=== PATIENT | female | born 1990 | race Caucasian/White ===

== ENCOUNTER 2022-11-10 11:37 | Emergency (ER) | payer OTHER, SELFPAY ==
[2022-11-10 11:46] VITALS: BP 109/67; PULSE 92; RESP 14; TEMP 36.4; O2SAT 100
--- NOTE | 2022-11-10 11:56 | ED.ABDPAIN ---
HPI - Abdominal Pain General Chief Complaint: Back Pain/Injury Stated Complaint: Spotting / lots of pain () Time Seen by Provider: 11/10/22 11:56 Source: patient Mode of arrival: ambulatory Limitations: no limitations History of Present Illness HPI narrative: 31-year-old female presents with complaint of vaginal bleeding, low back pain for the past week. Patient seen at [facility] ER last night and had positive test, positive hCG blood test and sent home. States they did not do an ultrasound. Patient here today stating that pain is worse. Was hoping that she can get an ultrasound here. No urinary symptoms. Last menstrual period September 26. Had miscarriage approximately 2 months ago. All systems reviewed and except as noted above. Related Data Home Medications Medication Instructions Recorded Confirmed No Home Medications 11/10/22 11/10/22 Allergies Allergy/AdvReac Type Severity Reaction Status Date / Time Penicillins Allergy Unknown Itching Verified 11/10/22 11:56 Review of Systems Review of Systems: CONSTITUTIONAL: Denies fever, chills, or sweats. EYES: Denies visual changes, redness, or discharge. ENT: Denies rhinorrhea, congestion, sore throat, or otalgia. CARDIOVASCULAR: Denies chest pain, palpitations, or edema. RESPIRATORY: Denies cough or dyspnea. GASTROINTESTINAL: Denies abdominal pain, nausea, vomiting, or diarrhea. GENITOURINARY: Denies dysuria or hematuria. Ports past SKIN: Denies rash or itching. MUSCULOSKELETAL: Reports low back pain. Denies joint pain, or myalgia. NEUROLOGIC: Denies headache, numbness, or weakness. PSYCHIATRIC: Denies anxiety or depression. All other systems reviewed are negative, except as documented in HPI. PMFSH Comments At time of signature, agree with nursing past medical, surgical, social and family history. There is no relevant family history pertinent to the presenting complaint. Exam Narrative: GENERAL: This is a well-nourished, well-developed patient, in no apparent distress. HEAD: normocephalic, atraumatic. EYES: PERRL. Sclera clear/white. Vision is grossly intact. EARS: External ears normal NOSE: External nose normal NECK: Neck supple, non-tender without lymphadenopathy, masses or thyromegaly. CARDIOVASCULAR: Regular rate and rhythm without murmurs, gallops, or rubs. RESPIRATORY: Clear to auscultation. Breath sounds equal bilaterally. No wheezes, rales, or rhonchi. SKIN: warm, Dry, intact with no suspicious lesions or rash, good texture and turgor. NEURO: awake, alert, and oriented to person, place and time. There were no obvious focal neurologic abnormalities. EXTREMITIES: No joint tenderness, effusion, or edema noted. Course Course Level of Care: Express Care Visit Vital Signs Vital signs: Vital Signs Temperature 36.4 C 11/10/22 11:46 Pulse Rate 92 11/10/22 11:46 Respiratory Rate 14 11/10/22 11:46 Blood Pressure 109/67 11/10/22 11:46 Pulse Oximetry 100 11/10/22 11:46 Oxygen Delivery Room Air 11/10/22 11:46 Temperature 36.4 C 11/10/22 11:58 Pulse Rate 92 11/10/22 11:58 Respiratory Rate 14 11/10/22 11:58 Blood Pressure 109/67 11/10/22 11:58 Pulse Oximetry 100 11/10/22 11:58 Oxygen Delivery Room Air 11/10/22 11:58 Reviewed Transfer Transfered to: [facility] Transportation: Other (Private car) Transfer rationale: vaginal bleeding and pain during . needs ultrasound. Accepting physician: Dr. Gruber MDM - Abdominal Pain MDM Narrative Medical decision making narrative: Patient is aware of diagnosis, understands and agrees to treatment plan. Anticipatory guidance given. Patient agrees to follow-up as directed and is aware of reasons to seek care at the emergency department. Portions of this record may have been created with voice recognition software Lab Data Labs: Urine Glucose Negative
[2022-11-10 11:58] VITALS: BP 109/67; PULSE 92; RESP 14; TEMP 36.4; O2SAT 100
== END 2022-11-10 12:20 | disposition short-term general hospital (02) ==
PROVIDERS: Emergency Provider Nurse Practitioner Family; PCP Internal Medicine
DX: O46.90 Antepartum hemorrhage, unspecified, unspecified trimester (principal)
CPT/HCPCS: 81003; 99203; G0463

== ENCOUNTER 2024-08-19 10:12 | Emergency (ER) | payer OTHER, SELFPAY ==
--- NOTE | 2024-08-19 10:14 | ED.FEMALEGU ---
HPI - Female Genitourinary General Chief complaint: Urogenital-Female Stated complaint: vagina irritation Time Seen by Provider: 08/19/24 10:22 Source: patient, RN notes reviewed and old records reviewed Mode of arrival: ambulatory Limitations: no limitations History of Present Illness HPI Narrative: 33-year-old female presents to the [facility] with vaginal issues. Patient reports 2-3 day history of vaginal discharge, abnormal smell. Describes as thick white discharge. States that she started having sex with a new partner, slightly concern for STD. thinks she might also have a tampon in the vaginal. Reports that she was treated for a UTI by [facility] on the 09 August, 10 days ago. LMP 1 week ago Onset (ago): day(s) (2-3) Sexual activity: Yes Date of Last Menstrual Period: 08/12/24 Related Data Home Medications ?Medication ?Instructions ?Recorded ?Confirmed ?Last Taken ?Type nitrofurantoin 08/19/24 Unknown History monohydrate/macrocrystals 100 mg capsule phenazopyridine 200 mg tablet mg 08/19/24 Unknown History Allergies Allergy/AdvReac Type Severity Reaction Status Date / Time Penicillins Allergy Unknown Itching Verified 08/19/24 10:23 Review of Systems Review of Systems: All systems reviewed & are unremarkable except as noted in HPI and below Constitutional: Constitutional: Reports no additional constitutional complaints ENT: Reports system reviewed and no additional complaints, except as documented Cardiovascular: Cardiovascular: Reports no additional cardiovascular complaints, Denies chest pain and Denies dyspnea Respiratory: Respiratory: Reports no additional respiratory complaints, Denies chest congestion, Denies cough and Denies dyspnea Genitourinary: Genitourinary: Reports as per HPI Musculoskeletal: Musculoskeletal: Reports no additional musculoskeletal complaints Integumentary/Breasts: Skin/Breast: Reports system reviewed and no additional complaints, except as docu PMFSH Comments At the time of my signature, I reviewed and agree with the nursing past medical, surgical, social, and family history. There is no relevant family history pertinent to the patient complaint. Exam Const: General: cooperative, healthy appearing, comfortable, no acute distress, well developed, alert and well nourished Nutritional Appearance: well nourished Orientation/consciousness: patient oriented x3 Limitations: no limitations HENMT: Head: normal to inspection Eyes: General: appearance normal, both eyes and all related structures Alignment and Position: alignment normal Neck: Neck: normal visual inspection, full ROM, no lymphadenopathy and no meningeal signs Chest: Chest palpation & inspection: normal inspection of the chest Resp: Effort & Inspection: normal respiratory effort and able to speak in complete sentences Cardio: Rate: regular rate GI: GI Palp: No abdominal tenderness : External Female Exam: normal external appearance Speculum Exam - Vagina: abnormal vaginal discharge white and malodorous, not erythematous, no swelling and nontender Speculum Exam - Cervix: normal appearance of the cervix, Cervical os closed and nontender Other: Chaperoned by Valroie FARR Back/Spine/Pelvis: Back: no CVA tenderness Skin: General skin exam: normal color and no rashes or lesions noted Neuro: General: patient oriented x3, gait normal, moves all extremities and no meningeal signs Cognition (Neuro): normal cognition Speech: normal speech Gait exam (Neuro): Normal gait present Extrem: General: normal to inspection, full ROM, capillary refill normal and normal gait Psych: Appearance: grossly normal and well kempt Mental Status: mental status grossly normal Speech and movement: Normal speech and movement present and Clear speech present Affect: normal affect Attitude: cooperative Course Course Level of Care: Express Care Visit Vital Signs Vital signs: Vital Signs Temperature 97.9 F 08/19/24 10:18 Pulse Rate 99 08/19/24 10:18 Respiratory Rate 16 08/19/24 10:18 Blood Pressure 107/90 08/19/24 10:18 Pulse Oximetry 100 08/19/24 10:18 Oxygen Delivery Room Air 08/19/24 10:18 Temperature 97.9 F 08/19/24 10:18 Pulse Rate 99 08/19/24 10:18 Respiratory Rate 16 08/19/24 10:18 Blood Pressure 107/90 08/19/24 10:18 Pulse Oximetry 100 08/19/24 10:18 Oxygen Delivery Room Air 08/19/24 10:18 Reviewed MDM - Female Genitourinary MDM Narrative Medical decision making narrative: Patient sitting in exam. Nontoxic, vitals are stable. Due to patient taking Pyridium and able to do urine dip, currently on Macrobid Culture sent. No foreign body noted Patient appropriate for outpatient treatment with close follow-up with silk weaver. Discharge instructions reviewed with patient, as well as provided in writing per nursing staff. The instructions also include specific and strict return/GO TO THE ER as well as f/u information. All questions have been answered, and the patient deny any further questions with discharge and discharge plan. Some parts of this dictation were generated by voice recognition software and may contain typographical and/or grammatical inaccuracies. Differential Diagnosis Differential diagnosis: Likely urinary tract infection, bacterial vaginosis, trichomoniasis, cervicitis, vaginitis, cystitis and dysmenorrhea Lab Data Labs: Lab Results 08/19/24 08/19/24 Range/Units 10:24 10:28 POC Urine HCG, Qual Negative (Negative) Bact Vaginosis Panel Pending Reviewed Critical Care Time Critical Care Time Critical Care Time: No Discharge Plan Discharge Clinical Impression: Bacterial vaginosis, Vaginal yeast infection Patient Disposition: Home Condition: Stable Instructions: Antibiotic Form, Bacterial Vaginosis (ED), Yeast Infection (ED) Additional Instructions: Today you been tested for chlamydia, gonorrhea and Trichomonas. If they are positive you will be notified For bacteria vaginitis you can eat a yogurt a day or take a probiotic. Soak in lukewarm water with baking soda and Epson salt Take medication as prescribed. Is not recommended that you drink any alcohol while on this medication and for 72 hours after Please follow-up with your silk weaver provider Patient Language: Malagasy Prescriptions: New fluconazole 150 mg tablet 150 mg PO ONCE Qty: 1 0RF Rx Instructions: as a single dose metronidazole 500 mg tablet 500 mg PO Q12H Qty: 14 0RF No Action phenazopyridine 200 mg tablet nitrofurantoin monohyd/m-cryst 100 mg capsule Follow-up/Referrals: UNKNOWN,DOCTOR [Non-Staff] - Stand Alone Forms: Work/School Release IP Time of Disposition: 10:49
[2024-08-19 10:18] VITALS: BP 107/90; PULSE 99; RESP 16; TEMP 36.6; O2SAT 100
[2024-08-19 10:45] LABS: BEDSIDEPREGUCG Negative (Negative)
--- NOTE | 2024-08-19 10:46 | PC.NURSE ---
1040 To room to [facility] for pelvic exam with T Topper In Mold Coater . Swabs collected and labeled. Pt tolerated procedure well.
--- OUTSIDE RECORDS SUMMARY | 2024-08-19 11:32 | XMS_ITS | Encounter Summary ---
Author Organization [facility] Address [address] [place] [address] Phone Care Team Providers Care Air Tester Name Role Phone Geovanny Springer MD Primary Care Provider [phone] Provider, None Primary Care Provider Unavailabl e Reason for Visit * Reason Comments Medication Refill Encounter Details Date Type Department Care Team (Late st Contact Info) Description 10/26/2022 Telephone [facility] - [facility] Medicine - [place] [address] [place] [address] Geovanny Springer MD [address] [place] [address] Medication Refill Social History Tobacco Use Types Packs/Day Years Used Date Smoking Tobacco: Every Day Cigarettes 0.5 24 Started: 1998; Last attempted to quit: 2022 Passive Smoke Exposure: Current Smokeless Tobacco: Never Alcohol Use Standard Drinks/Week Comments Yes 0 (1 standard drink = 0.6 oz pur e alcohol) occasionaly PHQ-2 Answer Date Recorded Total Score - Questions 1-9 4 05/26 Education Answer Date Recorded What is the highest level of school you have completed or the highest degree you have received? 8th grade 07/26/2022 Sexually Active Control Partners Comments Yes Male Comments Unknown Sex and Gender Information Value Date Recorded Sex Assigned at Not on file Legal Sex Female 7:05 PM CDT Gender Identity Not on file Sexual Orientation Not on file COVID-19 Exposure Response Date Recorded In the last 10 days, have yo u been in contact with someone who was confirmed or suspected to have Coronavirus/COVID-19? 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
--- OUTSIDE RECORDS SUMMARY | 2024-08-19 11:32 | XMS_ITS | Encounter Summary ---
Author Organization [facility] Address [address] [place] [address] Phone Care Team Providers Care Garbage Depot Worker Name Role Phone Geovanny Springer MD Primary Care Provider [phone]- [phone] Provider, None Primary Care Provider Unavailabl e Reason for Visit * Reason Comments Medication Refill Encounter Details Date Type Department Care Team (Late st Contact Info) Description 08/30/[address] [facility] - Internal Medicine - [place] [address] [place] [id number] Geovanny Springer MD [address] [place] [address] Medication Refill Social History Tobacco [...] Active Control Partners Comments Yes Male Comments No Sex and Gender Information Value Date Recorded Sex Assigned at Not on file Legal Sex Female 7:05 PM CDT Gender Identity Not on file Sexual Orientation Not on file documented as of this encounter Miscellaneous Notes * Telephone Encounter - Roya Diaz RN - 08/30/2023 9:33 AM CDT Medication failed the protocol, provider to review and approve the medication order if appropriate. Requested Prescriptions Pending Prescriptions Disp Refills traMADol (ULTRAM) 50 MG Tablet [Pharmacy Med Name: TRAMADOL 50MG TABLETS] 14 Tablet Sig: TAKE 1 TABLET BY MOUTH TWICE DAILY NEEDED FOR MODERATE TO SEVERE PAIN Not Delegated - Opioid Agonists Protocol Failed - 08/30/2023 9:30 AM Failed - This refill cannot be delegated Passed - Visit with relevant provider in past 12 months or upcoming 90 days Recent Visits Date Type Provider Dept 01/05/23 Office Visit Geovanny Springer MD [facility] 09/14/22 Office Visit Geovanny Springer MD [facility] Showing recent visits within past 365 days and meeting all other requirements Future Appointments No visits were found meeting these conditions. 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
--- OUTSIDE RECORDS SUMMARY | 2024-08-19 11:32 | XMS_ITS | Encounter Summary ---
Author Organization [facility] Address [address] [place] [address] Phone Care Team Providers Care Core Cutter And Reamer Name Role Phone Geovanny Springer MD Primary Care Provider [phone]- [phone] Provider, None Primary Care Provider Unavailabl e Reason for Visit * Reason Comments Medication Refill Encounter Details Date Type Department Care Team (Late st Contact Info) Description 12/09/2022 Refill [facility] - Internal Medicine - [place] [address] [place] [phone] Geovanny Springer MD [address] [place] [address] Medication Refill Social History Tobacco [...] Active Control Partners Comments Yes Male Comments Yes Sex and Gender Information Value Date Recorded Sex Assigned at Not on file Legal Sex Female 7:05 PM CDT Gender Identity Not on file Sexual Orientation Not on file COVID-19 Exposure Response Date Recorded In the last 10 days, have yo u been in contact with someone who was confirmed or suspected to have Coronavirus/COVID-19? 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
--- OUTSIDE RECORDS SUMMARY | 2024-08-19 11:32 | XMS_ITS | Encounter Summary ---
Author Organization [facility] Address [address] [place] [address] Phone Care Team Providers Care Usps Letter Carrier Name Role Phone Geovanny Springer MD Primary Care Provider [phone]- [phone] Provider, None Primary Care Provider Unavailabl e Reason for Visit * Reason Comments Medication Refill Encounter Details Date Type Department Care Team (Late st Contact Info) Description 10/24/2022 Refill [facility] - Internal Medicine - [place] [address] [place] [phone] Geovanny Springer MD [address] [place] [address] Medication Refill Social History Tobacco [...] Telephone Encounter - Roya Diaz RN - 10/26/2022 8:31 AM CDT PDMP 10/16/22 - 7 day supply Medication failed the protocol, provider to review and approve the medication order if appropriate. Requested Prescriptions Pending Prescriptions Disp Refills traMADol (ULTRAM) 50 MG Tablet [Pharmacy Med Name: TRAMADOL 50MG TABLETS] 14 Tablet 0 Sig: TAKE 1 TABLET BY MOUTH TWICE DAILY NEEDED FOR MODERATE TO SEVERE PAIN Not Delegated - Opioid Agonists Protocol Failed - 10/24/2022 10:14 PM Failed - This refill cannot be delegated Passed - Visit with relevant provider in past 12 months or upcoming 90 days Recent Visits Date Type Provider Dept 09/14/22 Office Visit Geovanny Springer MD [facility] 08/17/22 Office Visit Maya Payne PAC [facility] 07/26/22 Office Visit Geovanny Springer MD [facility] 06/20/22 Office Visit Geovanny Springer MD [facility] Showing recent visits within past 365 days and meeting all other requirements Future Appointments Date Type Provider Dept 11/16/22 Appointment Geovanny Springer MD [facility] Showing future appointments within next 90 days and meeting all other requirements documented in this encounter Plan of Treatment Not on file documented as of this encounter Visit Diagnoses Diagnosis Chronic bilateral low back pain without sciatica documented in this encounter Additional Health Concerns Assessment Noted Time PHQ-9 Depression Total Score: 4 06/20/19 23 1:00 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
--- OUTSIDE RECORDS SUMMARY | 2024-08-19 11:32 | XMS_ITS | Encounter Summary ---
Author Organization [facility] Address [address] [place] [address] Phone Care Team Providers Care Switchboard Mechanic Name Role Phone Geovanny Springer MD Primary Care Provider [phone]- [phone] Provider, None Primary Care Provider Unavailabl e Reason for Visit * Reason Comments Medication Refill Encounter Details Date Type Department Care Team (Late st Contact Info) Description 11/17/2022 Refill [facility] - Internal Medicine - [place] [address] [place] [phone] Geovanny Springer MD [address] [place] [address] Medication Refill Social History Tobacco [...] PM CDT documented as of this encounter Miscellaneous Notes * Telephone Encounter - Roya Diaz RN - 11/17/2022 11:04 AM CDT Medication failed the protocol, provider to review and approve the medication order if appropriate. Requested Prescriptions Pending Prescriptions Disp Refills traMADol (ULTRAM) 50 MG Tablet [Pharmacy Med Name: TRAMADOL 50MG TABLETS] 12 Tablet 0 Sig: TAKE 1 TABLET BY MOUTH EVERY 8 HOURS NEEDED FOR MODERATE TO SEVERE PAIN Not Delegated - Opioid Agonists Protocol Failed - 11/17/2022 11:00 AM Failed - This refill cannot be delegated Passed - Visit with relevant provider in past 12 months or upcoming 90 days Recent Visits Date Type Provider Dept 09/14/22 Office Visit Geovanny Springer MD [facility] 08/17/22 Office Visit Maya Payne PAC [facility] 07/26/22 Office Visit Geovanny Springer MD [facility] 06/20/22 Office Visit Geovanny Springer MD [facility] Showing recent visits within past 365 days and meeting all other requirements Future Appointments Date Type Provider Dept 01/05/23 Appointment Geovanny Springer MD [facility] Showing future appointments within next 90 days and meeting all other requirements documented in this encounter Plan of Treatment Not on file documented as of this encounter Visit Diagnoses Diagnosis Chronic bilateral low back pain without sciatica documented in this encounter Additional Health Concerns Assessment Noted Time PHQ-9 Depression Total Score: 4 06/20/19 23 1:00 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
--- OUTSIDE RECORDS SUMMARY | 2024-08-19 11:32 | XMS_ITS | Clinical Summary ---
Author Organization [facility] Address [address] [place] [address] Care Team Providers Care Substance Abuse Therapist Name Role Phone Unavailable Primary Care Provider Unavailabl e Source Comments [facility],non-owned Affiliates and Associated Physician Practices is amultiple site organization consisting of ambulatory clinics and hospital sitesin [place], [place], [place] and [place]. This disclosure is being madepursuant to the Care Everywhere program and may not contain all information available regarding this patient. Last updated 18.[facility] Allergies Active Allergy Reactions Criticality Noted Date Comments Penicillins Rash Medium 08/19/2019 Pt reports itching and rash Medications * Be aware that medications may not be up to date on this document. Alwaysverify current medications with the patient. LK-Azi-MU-Omeg a-3 ( GUMMIES/DHA & FA) 0.4-32.5 MG CHEW Active nicotine (NICODERM CQ) 21 MG/24HR patchIndicatio ns:Smoker,Dich orionic diamniotic twin , antepartum (HCC) Apply 1 patch to skin once daily 30 patch 0 Active Additional Information Patient not taking.Reported on 12/04/2019 nicotine (NICODERM CQ) 14 MG/24HR patchIndicatio ns:Smoker,Dich orionic diamniotic twin , antepartum (HCC) Apply 1 patch to skin once daily 30 patch 0 Active Additional Information Patient not taking.Reported on 12/04/2019 nicotine (NICODERM CQ) 7 MG/24HR patchIndicatio ns:Smoker,Dich orionic diamniotic twin , antepartum (HCC) Apply 1 patch to skin once daily 30 patch 0 Active Additional Information Patient not taking.Reported on 12/04/2019 polyethylene glycol 3350 (MIRALAX) 17 g packet Take 17 g by mouth once daily as needed for Constipation 100 g 1 0 Active acetaminophen (TYLENOL) 325 MG tablet Take 2 tablets by mouth every 6 hours as needed for Fever or Pain Maximum allowable Acetaminophen amount = 4 Grams (4000 mg) / 24 hours. 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 DCFS was allowing her to see her 3 kids until Covid started. Polyhydramnios affecting Oligohydramnios, antepartum Tobacco smoking affecting in third tri mester Twin , antepartum Immunizations Immunization Administration Dates Next Due TDAP (7yrs+) 12/05/2019(Deferred: Patient Ref used) Family History Medical History Relation Name Comments Cancer - Other Maternal Grandfather Relation Name Status Comments Brother 1 Alive Brother 2 Alive Father Alive Maternal Grandfather Maternal Grandmother Mother Alive Paternal Grandfather Alive Paternal Grandmother Alive Sister Alive Social History Tobacco Use Types Packs/Day Years Used Date Smoking Tobacco: Former Cigarettes 1 20.2 0 05/20/1999 - 07/29/2019 Smokeless Tobacco: Never Alcohol Use Standard Drinks/Week Comments Not Currently 0 (1 standard drink = 0.6 oz pur e alcohol) Comments No Sex and Gender Information Value Date Recorded Sex Assigned at Not on file 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 Gender Identity Not on file Sexual Orientation Not on file Last Filed Vital Signs Vital Sign Reading Time Taken Comments Blood Pressure 106/70 12/15/2019 12:51 AM CDT Pulse 78 12/15/2019 12:51 AM CDT Temperature 36.4 C (97.6 F) 12/15/2019 12:51 AM CDT Respiratory Rate 18 12/15/2019 12:51 AM CDT Oxygen Saturation 100% 12/15/2019 12:51 AM CDT Inhaled Oxygen Concentration - - Weight 66.2 kg (146 lb) 12/04/2019 5:25 PM CDT Height 160 cm (5' 3 ) 12/04/2019 5:25 PM CDT Body Mass Index 25.86 12/04/2019 5:25 PM CDT Plan of Treatment Health Maintenance Due Date Last Done Comments HIV SCREENING 2004 HEPATITIS C SCREENING 12/24/2007 DTAP/TDAP/TD VACCINES (1 - Tdap) 2008 HEPATITIS B VACCINE (1 of 3 - 19+ 3-dose series) 2008 COVID-19 VACCINE ( - 2023-2 5 season) 2023 DEPRESSION SCREENING 04/24/2024 INFLUENZA VACCINE (Season Ended) 2024 ZOSTER VACCINE (1 of 2) 12/29/2039 HIB VACCINE Aged Out No longer eligi ble based on patient's age to complete this topic HPV VACCINE Aged Out No longer eligi ble based on patient's age to complete this topic MENINGOCOCCAL (Group B) VACC INE SHARED DECISION-MAKING Aged Out No longer eligibl e based on patient's age to complete this topic MENINGOCOCCAL GROUPS A/C/Y/W VACCINE Aged Out No longer eligible b ased on patient's age to complete this topic PNEUMOCOCCAL VACCINE Aged Out No long er eligible based on patient's age to complete this topic Insurance [facility] [place] [address] Advance Directives * Full Code (Latest Code Status on File) Date Activated Date Inactivated Comments 12/12/2019 9:12 AM 12/15/2019 1:47 PM * Full Code Date Activated Date Inactivated Comments 12/04/2019 7:20 PM 12/12/2019 9:12 AM * Full Code Date Activated Date Inactivated Comments 12/04/2019 5:42 PM 12/04/2019 7:20 PM
--- OUTSIDE RECORDS SUMMARY | 2024-08-19 11:32 | XMS_ITS | Clinical Summary ---
Author Organization [facility] Address [address] [place] [address] Phone Care Team Providers Care Applications Scientist Name Role Phone Provider, None Primary Care Provider Unavailabl e Allergies Active Allergy Reactions Criticality Noted Date Comments Amoxicillin Rash 09/14/2016 Hydrocodone-Acetaminophen Unknown 06/01/2022 Penicillins Anaphylaxis 11/23/2015 Medications polyethylene glycol (GLYCOLAX, MIRALAX) 17 g PackIndications :Constipation Take 1 Packet by mouth 2 times daily as needed for Constipation - 1st line. Dissolve in 4-8 oz of liquid. Indications: Constipation 90 Packet 3 Active ondansetron (ZOFRAN-ODT) 4 MG TABLET DISPERSIBLE Take 1 Tablet by mouth every 6 hours as needed for Nausea - 1st line. 10 Tablet 3 Active acetaminophen (TYLENOL) 500 MG Tablet Take 500 mg by mouth. 3 Active traMADol (ULTRAM) 50 MG TabletIndicatio ns:Chronic bilateral low back pain without sciatica TAKE 1 TABLET BY MOUTH TWICE DAILY NEEDED FOR MODERATE TO SEVERE PAIN 14 Tablet 4 Active nitrofurantoin, monohydrate-mac rocrystal, (Macrobid) 100 MG Capsule Take 1 Capsule by mouth 2 times daily for 7 days. 14 Capsule 5 025 phenazopyridine (Pyridium) 200 MG Tablet Take 1 Tablet by mouth 3 times daily for 3 days. 9 Tablet 5 025 Active Problems Problem Noted Date Diagnosed Date Chronic low back pain 08/08/2022 Vapes nicotine containing substance 08/08/2022 Resolved Problems Problem Noted Date Diagnosed Date Resolved Date Cellulitis 08/09/2022 09/14/2022 Incarcerated umbilical hernia 08/08/2022 09/14/2022 Encounters Date Type Department Care Team Description 08/09/2024 3:00 PM CDT - 08/09/2024 4:48 PM CDT Emergency [facility] [address] [place] [address] Wilberto Bee, MARTIN Acute cystitis with hematuria Discharge Disposition: Discharged to home or Selfcare 08/09/2024 Travel from Last 3 Months Immunizations Immunization Administration Dates Next Due Human Papillomavirus Vaccine (HPV), quadrivalent 08/02/2006 Family History Medical History Relation Name Comments No Known Problems Daughter 1 No Known Problems Daughter 2 No Known Problems Father No Known Problems Half-Brother 1 No Known Problems Half-Brother 2 No Known Problems Half-Sister No Known Problems Mother Asthma Son 1 No Known Problems Son 2 No Known Problems Son 3 Relation Name Status Comments Daughter 1 Alive Daughter 2 Alive Father Alive Half-Brother 1 Alive Half-Brother 2 Alive Half-Sister Alive Mother Alive Son 1 Alive Son 2 Alive Son 3 Alive Social History Tobacco Use Types Packs/Day Years Used Date Smoking Tobacco: Every Day Cigarettes 0.5 24 Started: 1998; Last attempted to quit: 2022 Passive Smoke Exposure: Current Smokeless Tobacco: Never Tobacco Cessation:Ready to Q uit: Not Asked; Counseling Given: Not Answered Alcohol Use Standard Drinks/Week Comments Yes 0 [...] Sign Reading Time Taken Comments Blood Pressure 117/84 08/09/2024 4:46 PM CDT Pulse 95 08/09/2024 4:46 PM CDT Temperature 36.9 C (98.4 F) 08/09/2024 2:38 PM CDT Respiratory Rate 18 08/09/2024 4:46 PM CDT Oxygen Saturation 100% 08/09/2024 4:46 PM CDT Inhaled Oxygen Concentration - - Weight 49.9 kg (110 lb) 08/09/2024 2:38 PM CDT Height 160 cm (5' 3 ) 08/09/2024 2:38 PM CDT Body Mass Index 19.49 08/09/2024 2:38 PM CDT Plan of Treatment Health Maintenance Due Date Last Done Comments Hepatitis C Virus (HCV) Screening 1989 TdaP Immunization 1989 Hepatitis B Immunization (1 of 3 - 19+ 3-dose series) 2008 Pap Smear 2010 Cervical Cancer Screening (CCS) 12/29/2019 HPV/Cotest 12/29/2019 SARS-COV-2 Immunization ( - 2023-25 season) 2023 Respiratory Syncytial Virus (RSV) Immunization (Adult) (1 - 1-dose 75+ series) 2064 Influenza Immunization Discontinued Meningococcal Immunization (ACWY) Aged Out No longer eligible based on patient's age to complete this topic Pneumococcal Immunization Combined Discontinued Rotavirus Immunization Aged Out No lo nger eligible based on patient's age to complete this topic Medical Devices Implanted Type Area Diesel Retrofit Installer Device Identifier Shelf Expiration Date Model / Serial / Lot Staple Tacker Opt[employer]ix At - [id number] Implanted:Qty: 1 on 08/09/2022 by Brent Chaudhary MD at [facility] IMPLANT N/A: Umb[employer] 03/21/2024 [id number] / [id number] / [id number] M[address] Sepra Echo Ps 4.5in Mfl Ltwt Abs Loprfl Strl Seprafilm Polyp Hydrogel [employer] [place] - [id number] Implanted:Qty: 1 on 08/09/2022 by [facility] IMPLANT N/A: [employer]mb[employer] 08/20/2023 [id number] / [id number] / [id number] Procedures Procedure Name Priority Date/Time Associated Diagnosis Comments URINALYSIS REFLEX IF INDICATED BY ABNORMAL RESULTS STAT 08/09/2024 4:07 PM CDT CULTURE, URINE STAT 08/09/2024 4:07 PM CDT from Last 3 Months Results * (ABNORMAL) URINALYSIS REFLEX IF INDICATED BY ABNORMAL RESULTS (08/09/2024 4:07 PM CDT) SPECIFIC GRAVITY 1.025 1.003 - 1.030 08/09/2024 4:37 PM CDT [facility] URINE PH 6.0 5.0 - 9.0 08/09/2024 4:37 PM CDT [facility] WBC ESTERASE 25 /ul(A) Negative 08/09/2024 4:37 PM CDT [facility] NITRITE Negative Negative 08/09/2024 4:37 PM CDT [facility] PROTEIN, RANDOM URINE 30 mg/dL(A) Negative 08/09/2024 4:37 PM CDT [facility] URINE GLUCOSE, QUAL Negative Negative 08/09/2024 4:37 PM CDT [facility] URINE KETONES Negative Negative 08/09/2024 4:37 PM CDT [facility] UROBILINOGEN Normal Normal mg/dL 08/09/2024 4:37 PM CDT [facility] URINE BLOOD 10 /uL(A) Negative stone/ul 08/09/2024 4:37 PM CDT [facility] URINALYSIS COLOR Yellow 08/09/2024 4:37 PM CDT [facility] URINALYSIS CLARITY Slightly Cloudy 08/09/2024 4:37 PM CDT [facility] WBC (Urine) 6-10(A) Negative, 0-5 /hpf 08/09/2024 4:37 PM CDT [facility] URINE RBC'S 0-2 Negative, 0-2 /hpf 08/09/2024 4:37 PM CDT [facility] EPITHELIAL CELLS Occasional /lpf 08/09/2024 4:37 PM CDT [facility] BACTERIA, URINE Few(A) Negative /hpf 08/09/2024 4:37 PM CDT [facility] Urine URINE SPECIMEN OBTAINED BY CLEAN CATCH PROCEDURE / Unknown Non-Phlebotomy Collection / Unknown 08/09/2024 4:07 PM CDT 08/09/2024 4:09 PM CDT us Charleen Gonzalez MD URINE ORDERABLES Final R esult [facility] [address] [place] [address] * Culture, Urine (08/09/2024 4:07 PM CDT) CULTURE RESULTS ESCHERICHIA COLI 08/11/2024 5:16 PM CDT [facility] CULTURE RESULTS Also mixed growth of distal urethral contaminants 08/11/2024 5:16 PM CDT [facility] Urine URINE SPECIMEN OBTAINED BY CLEAN CATCH PROCEDURE / Unknown Non-Phlebotomy Collection / Unknown 08/09/2024 4:07 PM CDT 08/09/2024 4:09 PM CDT Narrative Organism Antibiotic Method Susceptibility Escherichia coli Ampicillin [facility] IIB >=32 mcg/ml: Resistant Escherichia coli Ampicillin/sulbactam [facility] IIB 4 mcg/ml: Susceptible Escherichia coli Cefepime [facility] IIB <=1 mcg/ml: Susceptible Escherichia coli Ceftriaxone [facility] II[facility] <=1 mcg/ml: Susceptible Escherichia coli Gentamicin [facility] II[facility] 4 mcg/ml: Intermediate Escherichia coli Levofloxacin [facility] IIB <=0.12 mcg/ml: Susceptible Escherichia coli Meropenem [facility] II[facility] <=0.25 mcg/ml: Susceptible Escherichia coli Nitrofurantoin [facility] IIB <=16 mcg/ml: Susceptible Escherichia coli Piperacillin/Tazobactam [facility] II B <=4 mcg/ml: Susceptible Escherichia coli Tobramycin [facility] IIB 4 mcg/ml: Intermediate Escherichia coli Trimeth/Sulfamethoxazole [facility] I IB <=20 mcg/ml: Susceptible us Charleen Gonzalez MD MICROBIOLOGY - GENERAL O RDERABLES Final Result [facility] [address] [place] [address], [place] from Last 3 Months Insurance MEDICAID [facility] Advance Directives * Full Code (Latest Code Status on File) Date Activated Date Inactivated Comments 08/08/2022 10:06 PM 08/10/2022 1:37 PM CPR-Full Tr eatment: FULL ARREST: Attempt Resuscitation/CPR wit intubation and mechanical ventilation. PRE-ARREST: Use entire range of life support measures to stabilize the patient. Care Teams Applications Scientist Relationship Specialty Start Date End Date Provider, None [place] PCP - General 08/09/24
--- OUTSIDE RECORDS SUMMARY | 2024-08-19 11:32 | XMS_ITS | Encounter Summary ---
Author Organization [facility] Address [address] [place] [address] Phone Care Team Providers Care Transitional Care Manager Name Role Phone Geovanny Springer MD Primary Care Provider [phone]- [phone] Provider, None Primary Care Provider Unavailabl e Reason for Visit * Reason Comments Medication Refill Encounter Details Date Type Department Care Team (Late st Contact Info) Description 12/09/2022 Refill [facility] - Internal Medicine - [place] [address] [place] [id number] Geovanny Springer MD [address] [place] [address] Medication Refill Social History Tobacco [...] Telephone Encounter - Roya Diaz RN - 12/12/2022 10:51 AM CDT PDMP 11/30/22 - 14 day supply Medication failed the protocol, provider to review and approve the medication order if appropriate. Requested Prescriptions Pending Prescriptions Disp Refills traMADol (ULTRAM) 50 MG Tablet [Pharmacy Med Name: TRAMADOL 50MG TABLETS] 28 Tablet 0 Sig: TAKE 1 TABLET BY MOUTH TWICE DAILY NEEDED FOR MODERATE TO SEVERE PAIN Not Delegated - Opioid Agonists Protocol Failed - 12/09/2022 8:51 AM Failed - This refill cannot be [...] Total Score: 4 06/20/19 23 1:00 PM FRAUD ANALYST documented as of this encounter Care Teams Transitional Care Manager Relationship Specialty Start Date End Date Geovanny Springer MD [address] [place] [address] PCP - General Internal Medicine 08/09/22 08/08/24 Provider, None [place] PCP - General 08/09/24 documented as of this encounter
--- OUTSIDE RECORDS SUMMARY | 2024-08-19 11:32 | XMS_ITS | Encounter Summary ---
Author Organization [facility] Address [address] [place] [address] Phone Care Team Providers Care Pilates Coordinator Name Role Phone Geovanny Springer MD Primary Care Provider [phone]- [phone] Provider, None Primary Care Provider Unavailabl e Reason for Visit * Reason Comments Medication Refill Encounter Details Date Type Department Care Team (Late st Contact Info) Description 05/15/2023 Refill [facility] - Internal Medicine - [place] [address] [place] [phone] Geovanny Springer MD [address] [place] [address] Medication Refill Social History Tobacco [...] encounter Miscellaneous Notes * Telephone Encounter - Hansa Carrillo RN - 05/15/2023 9:32 AM AGENCY SERVICE COORDINATOR Per PDMP/MEDD, most recently dispensed 03-31-23, as 14-day supply Medication failed the protocol, provider to review and approve the medication order if appropriate. Requested Prescriptions Pending Prescriptions Disp Refills traMADol (ULTRAM) 50 MG Tablet [Pharmacy Med Name: TRAMADOL 50MG TABLETS] 28 Tablet Sig: TAKE 1 TABLET BY MOUTH TWICE DAILY NEEDED FOR MODERATE TO SEVERE PAIN Not Delegated - Opioid Agonists Protocol Failed - 05/15/2023 9:28 AM Failed - This refill cannot be delegated Passed - Visit with relevant provider in past 12 months or upcoming 90 days Recent Visits Date Type Provider Dept 01/05/23 Office Visit Geovanny Springer MD [facility] [place] 09/14/22 Office Visit Geovanny Springer MD [facility] [place] 08/17/22 [facility] [place] [facility]22 Office Visit Geovanny Springer MD [facility] [place] 06/20/22 Office Visit Geovanny Springer MD [facility] [place] Showing recent visits within past 365 days and meeting all other requirements Future Appointments No visits were found meeting these conditions. Showing future appointments within next 90 days and meeting all other requirements CY SERVICE COORDINATOR documented in this encounter Plan of Treatment Not on file documented as of this encounter Visit Diagnoses Diagnosis Chronic bilateral low back pain without sciatica documented in this encounter Additional Health Concerns Assessment Noted Time PHQ-9 Depression Total Score: 4 06/20/19 23 1:00 PM AGENCY SERVICE COORDINATOR documented as of this encounter Care Teams Pilates Coordinator Relationship Specialty Start Date End Date Geovanny Springer MD [address] [place] [address] PCP - General Internal Medicine 08/09/22 08/08/24 Provider, Karthikeyan HANSON PCP - General 08/09/24 documented as of this encounter
--- OUTSIDE RECORDS SUMMARY | 2024-08-19 11:32 | XMS_ITS | Encounter Summary ---
Author Organization [facility] Address [address] [place] [address] Phone Care Team Providers Care Industrial Gas Production Operator Name Role Phone Geovanny Springer MD Primary Care Provider [phone]- [phone] Provider, None Primary Care Provider Unavailabl e Reason for Visit * Reason Comments Medication Refill Encounter Details Date Type Department Care Team (Late st Contact Info) Description 09/07/2023 Refill [facility] - [place] [address] [place] [address] Maya Payne, [facility] [address] [place] [address] Medication Refill Social History Tobacco Use Types [...] encounter Miscellaneous Notes * Telephone Encounter - Geovanny Springer MD - 09/07/2023 11:54 AM CDT Needs appt * Telephone Encounter - Roya Diaz RN - 09/07/2023 9:47 AM CDT Medication failed the protocol, provider to review and approve the medication order if appropriate. Requested Prescriptions Pending Prescriptions Disp Refills traMADol (ULTRAM) 50 MG Tablet [Pharmacy Med Name: TRAMADOL 50MG TABLETS] 14 Tablet 0 Sig: TAKE 1 TABLET BY MOUTH TWICE DAILY NEEDED FOR MODERATE TO SEVERE PAIN Not Delegated - Opioid Agonists Protocol Failed - 09/07/2023 9:21 AM Failed - This refill cannot be delegated Passed - Visit with relevant provider in past 12 months or upcoming 90 days Recent Visits Date Type Provider Dept 01/05/23 Office Visit Geovanny Springer MD [facility] [place] 09/14/22 Office Visit Geovanny Springer MD [facility] [place] Showing recent visits within past 365 days [...] Total Score: 4 06/20/19 23 1:00 PM SUPERINTENDENT PRESSURE documented as of this encounter Care Teams Industrial Gas Production Operator Relationship Specialty Start Date End Date Geovanny Springer MD [address] [place] [address] PCP - General Internal Medicine 08/09/22 08/08/24 Provider, Karthikeyan [place] PCP - General 08/09/24 documented as of this encounter
--- OUTSIDE RECORDS SUMMARY | 2024-08-19 11:32 | XMS_ITS | Encounter Summary ---
Author Organization [facility] Address [address] [place] [address] Phone Care Team Providers Care Real Estate Valuer Name Role Phone Geovanny Springer MD Primary Care Provider [phone]- [phone] Provider, None Primary Care Provider Unavailabl e Reason for Visit * Reason Comments Medication Refill Encounter Details Date Type Department Care Team (Late st Contact Info) Description 11/02/2022 Refill [facility] - [place] [address] [facility] [facility] [address] Maya Payne, [facility] [address] [address] Medication Refill Social History Tobacco Use Types [...] AM CDT documented as of this encounter Plan of Treatment Not on file documented as of this encounter Visit Diagnoses Diagnosis Chronic bilateral low back pain without sciatica documented in this encounter Additional Health Concerns Assessment Noted Time PHQ-9 Depression Total Score: 4 06/20/19 23 1:00 PM SEISMOGRAPH HELPER documented as of this encounter Care Teams Real Estate Valuer Relationship Specialty Start Date End Date Geovanny Springer MD [address] [place] [address] PCP - General Internal Medicine 08/09/22 08/08/24 Provider, None [place] PCP - General 08/09/24 documented as of this encounter
--- OUTSIDE RECORDS SUMMARY | 2024-08-19 11:32 | XMS_ITS | Encounter Summary ---
Author Organization [facility] Address [address] [place] [address] Phone Care Team Providers Care Performance Test Consultant Name Role Phone Geovanny Springer MD Primary Care Provider [phone] Provider, None Primary Care Provider Unavailabl e Reason for Visit * Reason Comments Medication Refill Encounter Details Date Type Department Care Team (Late st Contact Info) Description 11/29/2022 Refill [facility] - Internal Medicine - [place] [address] [place] [phone] Geovanny Springer MD [address] [place] [address] Medication Refill Social History Tobacco [...] Telephone Encounter - Roya Diaz RN - 11/29/2022 1:21 PM CDT Medication failed the protocol, provider to review and approve the medication order if appropriate. Requested Prescriptions Pending Prescriptions Disp Refills traMADol (ULTRAM) 50 MG Tablet [Pharmacy Med Name: TRAMADOL 50MG TABLETS] 28 Tablet 0 Sig: TAKE 1 TABLET BY MOUTH TWICE DAILY NEEDED FOR MODERATE TO SEVERE PAIN Not Delegated - Opioid Agonists Protocol Failed - 11/29/2022 1:00 PM Failed - This refill cannot be delegated Passed - Visit with relevant provider in past 12 months or upcoming 90 days Recent Visits Date Type Provider Dept 09/14/22 Office Visit Geovanny Springer MD [facility] 08/17/22 Office Visit Maya Payne PAC [facility] 07/26/22 Office Visit Geovanny Springer MD [facility] 06/20/22 Office Visit Geovanny Springer MD [facility] [place] Showing recent visits within past 365 days and meeting all other requirements Future Appointments Date Type Provider Dept 01/05/23 Appointment Geovanny Springer MD [facility] [place] Showing future appointments within next 90 days and meeting all other requirements documented in this encounter Plan of Treatment Not on file documented as of this encounter Visit Diagnoses Diagnosis Chronic bilateral low back pain without sciatica documented in this encounter Additional Health Concerns Assessment Noted Time PHQ-9 Depression Total Score: 4 06/20/19 1:00 PM FRONT END ASSISTANT documented as of this encounter Care Teams Performance Test Consultant Relationship Specialty Start Date End Date Geovanny Springer MD [address] [place] [address] PCP - General Internal Medicine 08/09/22 08/08/24 Provider, None [place] PCP - General 08/09/24 documented as of this encounter
--- OUTSIDE RECORDS SUMMARY | 2024-08-19 11:32 | XMS_ITS | Encounter Summary ---
Author Organization [facility] Address [address] [place] [address] Phone Care Team Providers Care Brick Siding Applicator Name Role Phone Geovanny Springer MD Primary Care Provider [phone]- [phone] Provider, None Primary Care Provider Unavailabl e Reason for Visit * Reason Comments Medication Refill Encounter Details Date Type Department Care Team (Late st Contact Info) Description 11/09/2022 Refill [facility] - Internal Medicine - [place] [address] [place] [phone] Geovanny Springer MD [address] [place] [address] Medication Refill Social History [...] Telephone Encounter - Roya Diaz RN - 11/11/2022 11:14 AM CDT Medication failed the protocol, provider to review and approve the medication order if appropriate. Requested Prescriptions Pending Prescriptions Disp Refills traMADol (ULTRAM) 50 MG Tablet [Pharmacy Med Name: TRAMADOL 50MG TABLETS] 14 Tablet 0 Sig: TAKE 1 TABLET BY MOUTH TWICE DAILY NEEDED FOR MODERATE TO SEVERE PAIN Not Delegated - Opioid Agonists Protocol Failed - 11/09/2022 9:28 PM Failed - This refill cannot be delegated Passed - Visit with relevant provider in past 12 months or upcoming 90 days Recent Visits Date Type Provider Dept 09/14/22 Office Visit Geovanny Springer MD [facility] 08/17/22 Office Visit Maya Payne PAC [facility] [place] 07/26/22 Office Visit Geovanny Springer MD [facility] 06/20/22 Office Visit Geovanny Springer MD [facility] Showing recent visits within past 365 days and meeting all other requirements Future Appointments Date Type Provider Dept 11/16/22 Appointment Geovanny Springer MD [facility] Showing future appointments within next 90 days and meeting all other requirements documented in this encounter Plan of Treatment Not on file documented as of this encounter Visit Diagnoses Diagnosis Chronic bilateral low back pain without sciatica documented in this encounter Additional Health Concerns Assessment Noted Time PHQ-9 Depression Total Score: 4 06/20/19 23 1:00 PM CORE SUCKER documented as of this encounter Care Teams Brick Siding Applicator Relationship Specialty Start Date End Date Geovanny Springer MD [address] [place] [address] PCP - General Internal Medicine 08/09/22 08/08/24 Provider, None [place] PCP - General 08/09/24 documented as of this encounter
--- OUTSIDE RECORDS SUMMARY | 2024-08-19 11:32 | XMS_ITS | Encounter Summary ---
Author Organization [facility] Address [address] [place] [place] [address] Phone Care Team Providers Care Gis Geographer Name Role Phone Geovanny Springer MD Primary Care Provider [phone]- [phone] Provider, None Primary Care Provider Unavailabl e Reason for Visit * Reason Comments Medication Refill Encounter Details Date Type Department Care Team (Late st Contact Info) Description 11/15/2022 [facility]ill [facility] - [place] [address] [facility] [place] [address] Maya Payne, [facility] [address] [place] [address] Medication Refill Social History Tobacco Use Types [...] Total Score: 4 06/20/19 23 1:00 PM PHYSICIAN RELATIONS MANAGER documented as of this encounter Care Teams Gis Geographer Relationship Specialty Start Date End Date Geovanny Springer MD [address] [place] [address] PCP - General Internal Medicine 08/09/22 08/08/24 Provider, None [place] PCP - General 08/09/24 documented as of this encounter
--- OUTSIDE RECORDS SUMMARY | 2024-08-19 11:33 | XMS_ITS | Encounter Summary ---
Author Organization [facility] Address [address] [place] [address] Phone Care Team Providers Care Principal Clerk Typist Name Role Phone Geovanny Springer MD Primary Care Provider [phone] Provider, None Primary Care Provider Unavailabl e Reason for Visit * Reason Comments Medication Refill Encounter Details Date Type Department Care Team (Late st Contact Info) Description 10/09/2022 Refill [facility] - Internal Medicine - [place] [address] [place] [phone] Geovanny Springer MD [address] [place] [address] Medication Refill Social History Tobacco [...] suspected to have Coronavirus/COVID-19? No / Unsure 09/14/2022 8:55 AM CDT documented as of this encounter Miscellaneous Notes * Telephone Encounter - Roya Diaz RN - 10/10/2022 8:23 AM CDT Medication failed the protocol, provider to review and approve the medication order if appropriate. Requested Prescriptions Pending Prescriptions Disp Refills traMADol (ULTRAM) 50 MG Tablet [Pharmacy Med Name: TRAMADOL 50MG TABLETS] 14 Tablet 0 Sig: TAKE 1 TABLET BY MOUTH TWICE DAILY NEEDED FOR MODERATE TO SEVERE PAIN Not Delegated - Opioid Agonists Protocol Failed - 10/09/2022 7:33 PM Failed - This refill cannot be delegated Passed - Visit with relevant provider in past 12 months or upcoming 90 days Recent Visits Date Type Provider Dept 09/14/22 Office Visit Geovanny Springer MD [facility] 08/17/22 Office Visit Maya Payne PAC [facility] [place] 07/26/22 Office Visit Geovanny Springer MD [facility] [place] 06/20/22 Office Visit Geovanny Springer MD [facility] [place] Showing recent visits within past 365 days and meeting all other requirements Future Appointments Date Type Provider Dept 11/16/22 Appointment Geovanny Springer MD [facility] [place] Showing future appointments within next 90 days and meeting all other requirements documented in this encounter Plan of Treatment Not on file documented as of this encounter Visit Diagnoses Diagnosis Chronic bilateral low back pain without sciatica documented in this encounter Additional Health Concerns Assessment Noted Time PHQ-9 Depression Total Score: 4 06/20/19 23 1:00 PM PLACEMENT 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
--- OUTSIDE RECORDS SUMMARY | 2024-08-19 11:33 | XMS_ITS | Referral Summary ---
Author Organization [facility] Address [address] [place] [address] Care Team Providers Care Model And Mold Maker Plaster Name Role Phone Marta Springer MD Primary Care Provider + Hong Chapa MD Unavailable [phone] Allergies Active Allergy Reactions Criticality Noted Date Comments Amoxicillin Itching Low 09/13/2018 Penicillins Anaphylaxis,Rash High 11/23/2015 Medications docusate sodium (COLACE) 100 mg capsuleIndicati ons:constipatio n,Stool Softener Take 1 capsule (100 mg total) by mouth 2 (two) times a day 60 capsule 1 09/02/2023 Active ibuprofen (ADVIL,MOTRIN) 600 mg tabletIndicatio ns:Cramps Take 1 tablet (600 mg total) by mouth every 6 (six) hours as needed for pain 60 tablet 1 09/02/2023 Active Active Problems Problem Noted Date Diagnosed Date with 37 weeks completed gestation 12/2023 Full-term premature rupture of membranes 024 Delivery with history of section 2023 Social History Tobacco Use Types Packs/Day Years Used Date Smoking Tobacco: Every Day Cigarettes 0.4 25.3 Started: 1999 Smokeless Tobacco: Never Tobacco Cessation:Ready to Q uit: No; Counseling Given: Yes Alcohol Use Standard Drinks/Week Comments Yes 1 (1 standard drink = 0.6 oz pur e alcohol) a week ago [facility] Utilities Answer Date Recorded In the past 12 months has th e electric, gas, oil, or water company threatened to shut off services in your home? Yes 09/01/2023 Humiliation, Afraid, Rape, and Kick questionnair e Answer Date Recorded Within the last year, have y ou been afraid of your partner or ex-partner? No 09/01/2023 Within the last year, have y ou been humiliated or emotionally abused in other ways by your partner or ex-partner? No Within the last year, have y ou been kicked, hit, slapped, or otherwise physically hurt by your partner or ex-partner? No 09/01/2023 Within the last year, have y ou been raped or forced to have any kind of sexual activity by your partner or ex-partner? No 09/01/2023 Social Connection and Isolat ion Panel [NHANES] Answer Date Recorded In a typical week, how many times do you talk on the phone with family, friends, or neighbors? More than three times a week 09/01/2023 How often do you get togethe r with friends or relatives? More than three times a week 09/01/2023 How often do you attend chur or caodaism services? Never 09/01/2023 Do you belong to any clubs o r organizations such as orthodoxy groups, unions, fraternal or athletic groups, or school groups? No 09/01/2023 How often do you attend meet ings of the clubs or organizations you belong to? Never 09/01/2023 Are you , , di vorced, , never , or living with a partner? Never 09/01/2023 AUDIT-C Answer Date Recorded Q1: How often do you have a drink containing alc ohol? Monthly or less 09/01/2023 Q2: How many drinks containi ng alcohol do you have on a typical day when you are drinking? 1 or 2 09/01/2023 Q3: How often do you have si x or more drinks on one occasion? Never 09/01/2023 Overall Financial Resource Strain (CARDIA) Answe r Date Recorded How hard is it for you to pa y for the very basics like food, housing, medical care, and heating? Somewhat hard 09/01/2023 PHQ-2 Answer Date Recorded PHQ-2 Total Score 0 09/01/2023 [facility] [place] of Occupat ional Health - Occupational Stress Questionnaire Answer Date Recorded Do you feel stress - tense, restless, nervous, or anxious, or unable to sleep at night because your mind is troubled all the time - these days? Not at all 09/01/2023 Exercise Vital Sign Answer Date Recorde d On average, how many days pe r week do you engage in moderate to strenuous exercise (like a brisk walk)? 7 days 09/01/2023 On average, how many minutes do you engage in exercise at this level? 30 min 09/01/2023 Hunger Vital Sign Answer Date Recorded Within the past 12 months, y ou worried that your food would run out before you got the money to buy more. Never true 09/01/19 24 Within the past 12 months, t he food you bought just didn't last and you didn't have money to get more. Never true 09/01/2023 PRAPARE - Transportation Answer Date Re corded In the past 12 months, has l ack of transportation kept you from medical appointments or from getting medications? No 08/22 In the past 12 months, has l ack of transportation kept you from meetings, work, or from getting things needed for daily living? No 09/01/2023 Housing Stability Vital Sign Answer Bandar e Recorded In the last 12 months, was t here a time when you were not able to pay the mortgage or rent on time? No 09/01/2023 In the last 12 months, how many places have you lived? 2 09/01/2023 In the last 12 months, was t here a time when you did not have a steady place to sleep or slept in a correction (including now)? No 09/01/2023 Pep Depression Scale Answer Date Recorded Pep Depression Scale Total 0 09/01/2023 The thought of harming myself has occurred to me . Never 09/01/2023 Personal Safety Answer Date Recorded Have you ever been in or are you currently in a harmful physical or emotional relationship or is someone making you feel afraid or unsafe? 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 Gender Identity Not on file Sexual Orientation Not on file Last Filed Vital Signs Vital Sign Reading Time Taken Comments Blood Pressure 101/63 09/02/2023 8:00 AM CDT Pulse 79 09/02/2023 8:00 AM CDT Temperature 36.5 C (97.7 F) 09/02/2023 4:00 PM CDT Respiratory Rate 18 09/02/2023 4:00 PM CDT Oxygen Saturation 98% 09/02/2023 2:30 AM CDT Inhaled Oxygen Concentration - - Weight 61.2 kg (135 lb) 08/31/2023 11:00 AM CDT Height 160 cm (5' 3 ) 08/31/2023 11:00 AM CDT Body Mass Index 23.91 08/31/2023 11:00 AM CDT Plan of Treatment Not on file Insurance IDPA [facility] Advance Directives For more information, please contact: [phone] * Full Code (Latest Code Status on File) Date Activated Date Inactivated Comments 09/01/2023 1:30 AM 09/02/2023 9:46 PM * Full Code Date Activated Date Inactivated Comments 08/31/2023 10:26 AM 09/01/2023 1:30 AM Full CPR in case of cardiopulmonary arrest * Full Code Date Activated Date Inactivated Comments 10/06/2018 9:16 PM 10/09/2018 3:53 AM * Full Code Date Activated Date Inactivated Comments 10/06/2018 3:26 PM 10/06/2018 9:16 PM Full CPR in case of cardiopulmonary arrest Care Teams Model And Mold Maker Plaster Relationship Specialty Start Date End Date Marta Springer MD [address] [facility] [place] [address] PCP - General Internal Medicine 11/10/22 Hong Chapa MD [address] [facility] [address] [address] Consulting Physician Obstetrics and Gynecology 09/02/23
--- OUTSIDE RECORDS SUMMARY | 2024-08-19 11:33 | XMS_ITS | Clinical Summary ---
Author Organization [facility] Address [address] [place] [address] Care Team Providers Care Dining Room Tables Set Up Attendant Name Role Phone Marta Springer MD Primary Care Provider + Hong Chapa MD Unavailable [phone] Allergies Active Allergy Reactions Criticality Noted Date [...] 024 Delivery with history of section 2023 Surgical History Surgery Date Site/Laterality Comments TONSILLECTOMY WRIST SURGERY 04/24/2011 - 04/23/2012 Left Family History Medical History Relation Name Comments Alcohol abuse Father Alcohol abuse Mother Relation Name Status Comments Father Mother Social History Tobacco Use Types Packs/Day Years Used Date Smoking Tobacco: Every Day Cigarettes 0.4 25.3 Started: 1999 Smokeless Tobacco: Never Tobacco Cessation:Ready to Q uit: No; Counseling Given: Yes Alcohol Use Standard Drinks/Week Comments Yes 1 (1 standard drink = 0.6 oz pur e alcohol) a week ago [facility] Utilities Answer Date Recorded In the past 12 months has [employer], [employer], or [employer] threatened to shut off services in your [...] How often do you attend chur or latter-day services? Never 09/01/2023 Do you belong to any clubs o r organizations such as confucianist groups, unions, fraternal or athletic groups, or [...] Date Recorded PHQ-2 Total Score 0 09/01/2023 [place] of Occupat ional Health - Occupational Stress [...] place to sleep or slept in a chcf (including now)? 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 Gender Identity Not on file Sexual Orientation Not on file Obstetrics History Para Term AB IAB SAB Ectopic Multiple Livin g Live Births 7 5 4 1 2 1 1 6 6 Date Outcome GA Total Labor Labor/2nd/3rd Weight Sex Type Anes PTL Aileen A1 A5 Name Clin 2009 Term 3.26 kg (7 lb 3 oz) F Vag-S pont Livin g 2012 Term 2.325 kg (5 lb 2 oz) M Vag-S pont Livin g 2016 AB 2017 SAB 2018 Term 39w 0d 3.402 kg (7 lb 8 oz) F Epidur al N Livin g Complications:None Delivery Location:[facility] ity 2019 29w 5d 0h 04m 0h 04m 1.19 kg (2 lb 10 oz) M CS-LT ranv Spinal Y Livin g 6 8 HILL, BABY BOY 1 PROSPER stover MD Delivery Location:[facility] ([address]) 2019 29w 5d 0h 03m 0h 03m 1.25 kg (2 lb 12.1 oz) M CS-LT ranv Spinal Y Livin g 6 8 HILL, BABY BOY 2 PROSPER stover MD Delivery Location:[facility] ([address]) 2023 Term 38w 2d 1h 47m 1h 34m/0h 03m/0h 10m 2.925 kg (6 lb 7.2 oz) F Epidur al N Livin g 9 9 Bonita Stubbs, Complications:None Delivery Location:[facility] Last Filed Vital Signs Vital Sign Reading [...] 08/31/2023 11:00 AM CDT Plan of Treatment Health Maintenance Due Date Last Done Comments Cervical Cancer Screening 1989 Hepatitis C Screening 1989 DTaP/Tdap/Td Vaccine (1 - Tdap) 2000 Varicella Vaccines (1 of 2 - 13+ 2-dose series) 2002 Hepatitis B Screening 12/29/2007 Regular Well Visit/Exam 18-64 12/29/2007 Pneumococcal vaccine <65 (1 of 2 - PCV) 2008 Depression Screening 08/31/2024 09/01/2023, 08/09/2023, 08/04/2023 Influenza Vaccine (Season Ended) 2024 HPV Vaccines Aged Out No longer eligi ble based on patient's age to complete this topic [place] [address] [facility] Advance Directives For more information, please contact: [phone] * Full Code (Latest Code Status on [...] in case of cardiopulmonary arrest Care Teams Dining Room Tables Set Up Attendant Relationship Specialty Start Date End Date Marta Springer MD [address] [facility] [place] [address] PCP - General Internal Medicine 11/10/22 Hong Chapa MD [address] [facility] [address] [place] [address] Consulting Physician Obstetrics and Gynecology 09/02/23
--- OUTSIDE RECORDS SUMMARY | 2024-08-19 11:33 | XMS_ITS | Encounter Summary ---
Author Organization [facility] Address [address] [place] [address] Phone Care Team Providers Care Neon Tube Pumper Name Role Phone Geovanny Springer MD Primary Care Provider Provider, None Primary Care Provider Unavailabl e Reason for Visit * Reason Comments Medication Refill Encounter Details Date Type Department Care Team (Late st Contact Info) Description 09/05/2022 Refill [facility] Med Surg [address] [place] [phone] Geovanny Springer MD [address] [place] [address] Medication Refill Social History Tobacco Use Types Packs/Day Years Used Date Smoking Tobacco: Former Cigarettes 0.5 24 1 999 - 2022 Passive Smoke Exposure: Current Smokeless Tobacco: [...] suspected to have Coronavirus/COVID-19? No / Unsure 08/31/2022 11:02 PM CDT documented as of this encounter Miscellaneous Notes * Telephone Encounter - Beverly Correa - 09/05/2022 12:25 PM CDT Med rf Medication - Tramadol Phone - [phone] Pharmacy - [facility] documented in this encounter Plan of Treatment Not on file documented as of this encounter Visit Diagnoses Diagnosis Chronic bilateral low back pain without sciatica documented in this encounter Additional Health Concerns Assessment Noted Time PHQ-9 Depression Total Score: 4 06/20/19 23 1:00 PM SALT LIFTER documented as of this encounter Care Teams Neon Tube Pumper Relationship Specialty Start Date End Date Geovanny Springer MD [address] [place] [address] PCP - General Internal Medicine 08/09/22 08/08/24 Provider, None [place] PCP - General 08/09/24 documented as of this encounter
--- OUTSIDE RECORDS SUMMARY | 2024-08-19 11:33 | XMS_ITS | Encounter Summary ---
Author Organization [facility] Address [address] [place] [address] Phone Care Team Providers Care Curing Room Supervisor Name Role Phone Geovanny Springer MD Primary Care Provider Provider, None Primary Care Provider Unavailabl e Reason for Visit * Reason Comments Medication Refill Encounter Details Date Type Department Care Team (Late st Contact Info) Description 08/15/2022 Refill [facility] Med Surg [address] [place] [phone] Brent Chaudhary MD [address] [address] Medication Refill Social History Tobacco Use Types [...] suspected to have Coronavirus/COVID-19? 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
--- OUTSIDE RECORDS SUMMARY | 2024-08-19 11:33 | XMS_ITS | Encounter Summary ---
Author Organization [facility] Address [address] [place] [address] Phone Care Team Providers Care Account Technician Name Role Phone Geovanny Springer MD Primary Care Provider [phone] Provider, None Primary Care Provider Unavailabl e Reason for Visit * Reason Comments Medication Refill Encounter Details Date Type Department Care Team (Late st Contact Info) Description 09/08/2022 Refill [facility] Med Surg [address] [place] [phone] Geovanny Springer MD [address] [place] [address] Medication Refill Social History Tobacco Use Types [...] Telephone Encounter - Roya Diaz RN - 09/09/2022 8:04 AM CDT Medication failed the protocol, provider to review and approve the medication order if appropriate. Requested Prescriptions Pending Prescriptions Disp Refills traMADol (ULTRAM) 50 MG Tablet [Pharmacy Med Name: TRAMADOL 50MG TABLETS] 14 Tablet 0 Sig: TAKE 1 TABLET BY MOUTH EVERY 8 HOURS NEEDED FOR MODERATE TO SEVERE PAIN There is no refill protocol information for this order documented in this encounter Plan of Treatment Not on file documented as of this encounter Visit Diagnoses Diagnosis Chronic bilateral low back pain without sciatica documented in this encounter Additional Health Concerns Assessment Noted Time PHQ-9 Depression Total Score: 4 06/20/19 23 1:00 PM DIP PAINTER documented as of this encounter Care Teams Account Technician Relationship Specialty Start Date End Date Geovanny Springer MD [address] [place] [address] PCP - General Internal Medicine 08/09/22 08/08/24 Provider, None [place] PCP - General 08/09/24 documented as of this encounter
--- OUTSIDE RECORDS SUMMARY | 2024-08-19 11:33 | XMS_ITS | Encounter Summary ---
Author Organization [facility] Address [address] [place] [address] Phone Care Team Providers Care Warper Tender Name Role Phone Geovanny Springer MD Primary Care Provider [phone] Provider, None Primary Care Provider Unavailabl e Reason for Visit * Reason Comments Medication Refill Encounter Details Date Type Department Care Team (Late st Contact Info) Description 09/09/2022 Refill [facility] - Internal Medicine - [place] [address] [place] [phone] Geovanny Springer MD [address] [place] [address] Medication Refill Social History Tobacco [...] Total Score: 4 06/20/19 23 1:00 PM DISTRICT MANAGER POSTAL SERVICE documented as of this encounter Care Teams Warper Tender Relationship Specialty Start Date End Date Geovanny Springer MD [address] [place] [address] PCP - General Internal Medicine 08/09/22 08/08/24 Provider, None [place] PCP - General 08/09/24 documented as of this encounter
--- OUTSIDE RECORDS SUMMARY | 2024-08-19 11:33 | XMS_ITS | Encounter Summary ---
Author Organization [facility] Address [address] [place] [address] Phone Care Team Providers Care Cbx Operator Name Role Phone Geovanny Springer MD Primary Care Provider [phone] Provider, None Primary Care Provider Unavailabl e Reason for Visit * Reason Comments Medication Refill Encounter Details Date Type Department Care Team (Late st Contact Info) Description 01/21/2023 Refill [facility] - Internal Medicine - [place] [address] [place] [phone] Geovanny Springer MD [address] [place] [address] Medication Refill Social History Tobacco [...] suspected to have Coronavirus/COVID-19? No / Unsure 01/05/2023 8:43 AM CDT documented as of this encounter Miscellaneous Notes * Telephone Encounter - Roya Diaz RN - 01/23/2023 8:13 AM CDT Medication failed the protocol, provider to review and approve the medication order if appropriate. Requested Prescriptions Pending Prescriptions Disp Refills traMADol (ULTRAM) 50 MG Tablet [Pharmacy Med Name: TRAMADOL 50MG TABLETS] 28 Tablet 0 Sig: TAKE 1 TABLET BY MOUTH TWICE DAILY NEEDED FOR MODERATE TO SEVERE PAIN Not Delegated - Opioid Agonists Protocol Failed - 01/21/2023 4:40 PM Failed - This refill cannot be delegated Passed - Visit with relevant provider in past 12 months or upcoming 90 days Recent Visits Date Type Provider Dept 01/05/23 Office Visit Geovanny Springer MD [facility] 09/14/22 Office Visit Geovanny Springer MD [facility] 08/17/22 Office Visit Maya Payne PAC [facility] 07/26/22 Office Visit Geovanny Springer MD [facility] 06/20/22 Office Visit Geovanny Springer MD [facility] [place] Showing recent visits within past 365 days and meeting all other requirements Future Appointments Date Type Provider Dept 04/06/23 Appointment Geovanny Springer MD [facility] Showing future appointments within next 90 days and meeting all other requirements documented in this encounter Plan of Treatment Not on file documented as of this encounter Visit Diagnoses Diagnosis Chronic bilateral low back pain without sciatica documented in this encounter Additional Health Concerns Assessment Noted Time PHQ-9 Depression Total Score: 4 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
[2024-08-20 21:40] LABS: Trichomonas Vag PCR NOT DETECTED (NOT DETECTE)
[2024-08-20 22:05] LABS: Chlamydia trachomatis NOT DETECTED (NOT DETECTE); Neisseria gonorrhoeae PCR NOT DETECTED (NOT DETECTE)
[2024-08-21 11:48] LABS: Bacterial Vaginosis POSITIVE (NEGATIVE)
== END 2024-08-19 10:55 | disposition home or self-care (01) ==
PROVIDERS: Emergency Provider Nurse Practitioner
DX: N76.0 Acute vaginitis (principal); B37.31 Acute candidiasis of vulva and vagina; Z11.3 Encounter for screening for infections with a predominantly sexual mode of transmission
CPT/HCPCS: 81025; 81513; 87070; 87086; 87491; 87591; 87661; 99213; G0463